=== PATIENT | male | born 1960 | race Caucasian/White ===

== ENCOUNTER 2021-04-04 14:08 | Emergency (ER) | payer BC, OTHER ==
[2021-04-04 14:37] VITALS: RESP 18; TEMP 97.7
--- NOTE | 2021-04-04 14:59 | ED ---
General Adult HPI - General Chief complaint: Extremity Problem,Nontraumatic Stated complaint: L Leg Pain Time Seen by Provider: 04/04/21 14:21 Source: patient Mode of arrival: wheelchair Limitations: no limitations - History of Present Illness Initial comments: Dictation was produced using [employer] dictation software. please excuse any grammatical, word or spelling errors. Chief Complaint: 61-year-old male presents with left lower extremity pain. History of Present Illness: 61 yo male presents to the emergency department left lower extremity pain. Patient states he had a PE in the past after right foot bunion surgery. Reports over the last week he has been developing symptoms of left lower extremity pain. He states that he has pain from his hip all her down to his foot.. Denies any chest pain shortness of breath. States that he does have some pain in his left calf and left medial thigh. No fevers, chills or night sweats. The ROS documented in this emergency department record has been reviewed and confirmed by me. Those systems with pertinent positive or negative responses have been documented in the HPI. All other systems are other negative and/or noncontributory. PHYSICAL EXAM: General Impression: Alert and oriented x3, not in acute distress HEENT: Normocephalic atraumatic, extra-ocular movements intact, pupils equal and reactive to light bilaterally, mucous membranes moist. Cardiovascular: Heart regular rate and rhythm Chest: Able to complete full sentences, no retractions, no tachypnea Abdomen: abdomen soft, non-tender, non-distended, no organomegaly Musculoskeletal: Pulses present and equal in all extremities, no peripheral edema Left lower showing: Pain with palpation of the left calf, left popliteal area. Motor: no focal deficits noted Neurological: CN II-XII grossly intact, no focal motor or sensory deficits noted Skin: Intact with no visualized rashes Psych: Normal affect and mood ED course: 61-year-old male with past medical history of PE presents to the emergency department of left lower extremity symptoms concerning for left lower extremity DVT. Signs upon arrival are within acceptable limits. Patient reports he does not take any anticoagulation medications. Lavatory evaluation obtained. Hemoglobin 9.0. CBC metabolic panel is unremarkable. Hip x-ray and knee x-ray shows no acute processes. Venous Doppler study shows no DVT.Treatment at bedside stable medical condition. Patient has history of anemia. He states that his anemia is being evaluated by his primary care doctor. He is had issues with anemia in the past that have been worked up however no obvious answer was found. Denies any black or dark stools. advise follow up with PCP. - Related Data Home Medications Medication Instructions Recorded Confirmed Aspirin EC [Ecotrin] 325 mg PO HS 04/04/21 04/04/21 Citalopram Hydrobromide [CeleXA] 40 mg PO HS 04/04/21 04/04/21 Ferrous Sulfate [Feosol] 325 mg PO TID 04/04/21 04/04/21 HYDROcodone/APAP 10-325MG [[place] 2 tab PO BID 04/04/21 04/04/21 10-325] LORazepam [Ativan] 1 mg PO BID PRN 04/04/21 04/04/21 Multivitamins, Thera [Multivitamin 1 tab PO HS 04/04/21 04/04/21 (formulary)] rOPINIRole HCL [Requip] 2 mg PO HS 04/04/21 04/04/21 Allergies Allergy/AdvReac Type Severity Reaction Status Date / Time No Known Allergies Allergy Verified 04/04/21 17:22 Review of Systems ROS Statement: Those systems with pertinent positive or pertinent negative responses have been documented in the HPI. ROS Other: All systems not noted in ROS Statement are negative. Past Medical History Past Medical History: No Reported History History of Any Multi-Drug Resistant Organisms: None Reported Past Surgical History: Orthopedic Surgery Additional Past Surgical History / Comment(s): Right rotator cuff repair 2009, Bunion removal R great toe 2012 Past Psychological History: No Psychological Hx Reported Smoking Status: Current every day smoker Past Alcohol Use History: Occasional Past Drug Use History: Marijuana General Exam Limitations: no limitations Course Vital Signs 04/04/21 04/04/21 14:22 16:00 Temperature 97.7 F Pulse Rate 68 62 Respiratory 18 18 Rate Blood Pressure 138/90 144/83 O2 Sat by Pulse 100 98 Oximetry Medical Decision Making - Lab Data Result diagrams: 04/04/21 14:51 04/04/21 14:51 Lab Results 04/04/21 04/04/21 04/04/21 Range/Units 14:51 14:51 14:51 WBC 5.3 (3.8-10.6) k/uL RBC 3.45 L (4.30-5.90) m/uL Hgb 9.0 L (13.0-17.5) gm/dL Hct 28.2 L (39.0-53.0) % MCV 81.9 (80.0-100.0) fL MCH 26.1 (25.0-35.0) pg MCHC 31.9 (31.0-37.0) g/dL RDW 25.5 H (11.5-15.5) % Plt Count 212 (150-450) k/uL MPV 7.4 Neutrophils % 66 % Lymphocytes % 19 % Monocytes % 5 % Eosinophils % 9 % Basophils % 1 % Neutrophils # 3.5 (1.3-7.7) k/uL Lymphocytes # 1.0 (1.0-4.8) k/uL Monocytes # 0.2 (0-1.0) k/uL Eosinophils # 0.5 (0-0.7) k/uL Basophils # 0.0 (0-0.2) k/uL Hypochromasia Marked Anisocytosis Marked Microcytosis Moderate PT 10.5 (9.0-12.0) sec INR 1.0 (<1.2) APTT 20.1 L (22.0-30.0) sec Sodium 139 (137-145) mmol/L Potassium 4.6 (3.5-5.1) mmol/L Chloride 108 H (98-107) mmol/L Carbon Dioxide 25 (22-30) mmol/L Anion Gap 6 mmol/L BUN 19 (9-20) mg/dL Creatinine 0.76 (0.66-1.25) mg/dL Est GFR (CKD-EPI)AfAm >90 (>60 ml/min/1.73 sqM) Est GFR (CKD-EPI)NonAf >90 (>60 ml/min/1.73 sqM) Glucose 89 (74-99) mg/dL Calcium 8.8 (8.4-10.2) mg/dL Disposition Clinical Impression: Leg pain Disposition: HOME SELF-CARE Condition: Good Instructions (If sedation given, give patient instructions): Leg Pain (ED) Is patient prescribed a controlled substance at d/c from ED?: No Referrals: Jemal Ordoñez MD [Primary Care Provider] - 1-2 days
[2021-04-04 15:26] LABS: Anisocytosis Marked; Basophils % (A) 1 %; Eosinophils # (A) 0.5 k/uL (0-0.7); Eosinophils % (A) 9 %; HCT 28.2 % (39.0-53.0); Hypochromasia Marked; Lymphocytes % (A) 19 %; MCH 26.1 pg (25.0-35.0); MCHC 31.9 g/dL (31.0-37.0); MCV 81.9 fL (80.0-100.0); Mean Platelet Volume 7.4; Microcytosis Moderate; Monocytes # (A) 0.2 k/uL (0-1.0); Monocytes % (A) 5 %; Neutrophils # (A) 3.5 k/uL (1.3-7.7); Neutrophils % (A) 66 %; Platelet Count 212 k/uL (150-450); RBC 3.45 m/uL (4.30-5.90); WBC 5.3 k/uL (3.8-10.6)
[2021-04-04 15:41] LABS: Partial Thromboplastin Time 20.1 sec (22.0-30.0); Prothrombin Time 10.5 sec (9.0-12.0)
[2021-04-04 15:46] LABS: African American GFR (CKD) >90 (>60 ml/min/1.73 sqM); Anion Gap 6 mmol/L; Blood Urea Nitrogen 19 mg/dL (9-20); Calcium 8.8 mg/dL (8.4-10.2); Carbon Dioxide 25 mmol/L (22-30); Chloride 108 mmol/L (98-107); Glucose 89 mg/dL (74-99); Non-African American GFR(CKD) >90 (>60 ml/min/1.73 sqM); Potassium 4.6 mmol/L (3.5-5.1); Sodium 139 mmol/L (137-145)
[2021-04-04 15:55] LABS: RDW 25.5 % (11.5-15.5)
--- NOTE | 2021-04-04 16:09 | US ---
EXAMINATION TYPE: US venous doppler duplex LE LT DATE OF EXAM: 04/04/2021 3:52 PM COMPARISON: NONE CLINICAL HISTORY: suspect dvt. pain SIDE PERFORMED: Left TECHNIQUE: The lower extremity deep venous system is examined utilizing real time linear array sonog ana with graded compression, doppler sonography and color-flow sonography. VESSELS IMAGED: Common Femoral Vein Deep Femoral Vein Greater Saphenous Vein * Femoral Vein Popliteal Vein Small Saphenous Vein * Proximal Calf Veins (* superficial vessels) There is normal flow, compressibility, vascular waveforms Left Leg: Negative for DVT IMPRESSION: No evident deep venous process at left knee or central to the left knee
[2021-04-04 16:42] VITALS: BP 144/83; PULSE 62
--- NOTE | 2021-04-04 16:46 | XR ---
EXAMINATION TYPE: XR knee 4V LT DATE OF EXAM: 04/04/2021 COMPARISON: NONE HISTORY: Left leg pain TECHNIQUE: 4 views FINDINGS: I see no fracture nor dislocation. Joint spaces are normal. There are no pathologic calcifi cations. IMPRESSION: Normal left knee exam. No fracture.
--- NOTE | 2021-04-04 16:48 | XR ---
EXAMINATION TYPE: XR Hip Complete LT DATE OF EXAM: 04/04/2021 COMPARISON: NONE HISTORY: Leg pain TECHNIQUE: 2 views FINDINGS: There is some spurring on the femoral head. Acetabulum appears intact. I see no fracture. S acroiliac joint is intact. There is no significant hip joint space narrowing. IMPRESSION: Osteoarthritis. No fracture seen.
== END 2021-04-04 17:58 | disposition home or self-care (01) ==
LOC: EC 14:08
DX: M79.605 Pain in left leg (principal); F17.200 Nicotine dependence, unspecified, uncomplicated; F12.90 Cannabis use, unspecified, uncomplicated; Z79.82 Long term (current) use of aspirin; Z86.711 Personal history of pulmonary embolism
CPT/HCPCS: 36415; 73502; 80048; 85025; 85610; 85730; 99284

== ENCOUNTER 2021-05-19 09:16 | Day surgery (SDC) | payer BC ==
[2021-05-15 12:59] VITALS: BMI 32.1
[~2021-05-19 09:16] MED LIST: LACTATED RINGERS 1,000 ML IV SCH; LIDOCAINE 1% (10MG/ML) FOR IV START INTRADERMA PRN; MIDAZOLAM 2 MG/2 ML VIAL IV PRN
[2021-05-19 09:41] VITALS: RESP 16; TEMP 97.2
[2021-05-19] MEDS ORDERED: PROPOFOL 10 MG/ML 20 ML VIAL IV ONE (09:50)
[2021-05-19] MEDS ORDERED: LIDOCAINE 1% INJ 10MG/ML (20 ML MDV) ONE (09:50)
--- NOTE | 2021-05-19 10:31 | P.PCN ---
Date of Procedure: 05/19/21 Description of Procedure: Brief history: Patient is a 61-year-old male presenting for outpatient eso phagogastroduodenoscopy and colonoscopy for evaluation of symptoms of anemia. Patient denies any gross signs or symptoms of GI bleeding. Last colonoscopy 2017 significant for pandiverticulosis and internal hemorrhoids. Patient has recently seen a blueprint engineer and reports that hemoglobin improved from 7-13. No family history of colon cancer. Procedure performed: Esophagogastroduodenoscopy with biopsy Colonoscopy Estimated blood loss: Minimal. Preoperative diagnosis: Anemia, iron deficiency anemia, last colonoscopy 2016 Anesthesia: MAC Procedure: After informed consent was obtained from the patient was brought into the endoscopy unit and IV sedation was administered by anesthesia under continuous monitoring. Initially upper endoscopy was done. The Olympus GF 190 video endoscope was inserted into the mouth and esophagus intubated without any difficulty and was gradually advanced into the stomach and duodenum and carefully examined. The bulb and second part of the duodenum appeared normal, with biopsies taken. The scope was then withdrawn into the stomach adequately insufflated with air and upon careful examination the antrum and body, cardia and fundus appeared normal, with some moderate punctate erythema with some superficial erosions in the antrum and body as well as in the hiatal hernia sac. The scope was then withdrawn into the esophagus. The GE junction was located at 35 cm to the incisors, with a 5 cm hiatal hernia noted. It appeared regular with no erythema erosions or ulcerations. Rest of the esophagus appeared normal. Patient tolerated the procedure well. At this time the patient continued to remain sedation. Initial digital rectal examination was normal. Olympus CF 190 video colonoscope was then inserted into the rectum and gradually advanced to the cecum without any difficulty. Careful examination was performed as the scope was gradually being withdrawn. The prep was excellent. The cecum, ascending colon, transverse colon, descending colon, sigmoid colon and rectum appeared normal. A few scattered diverticula noted throughout the colon. Retroflexion was performed in the rectum and no lesions were noted, low-grade internal hemorrhoids noted. Patient tolerated the procedure well. Impression: 1. Moderate gastritis. Large hiatal hernia. No ulceration, masses or evidence of bleeding noted. Biopsies of the duodenum, antrum and body. 2. Mild pandiverticulosis. Internal hemorrhoids. Recommendations: Findings of this examination were discussed with the patient as well as his family. Okay to resume diet. Okay to resume medications. Await pathology from biopsies. Patient will be given a 2 month course of omeprazole daily for treatment of gastritis. Follow up with hematology as scheduled. Repeat colonoscopy in 10 years for screening for malignant neoplasm of the colon.
[2021-05-19 10:52] VITALS: BP 144/91; PULSE 68
== END 2021-05-19 11:17 | disposition home or self-care (01) ==
LOC: ORWHC2ENDO 09:16
PROVIDERS: ATTEND Internal Medicine
DX: K31.9 Disease of stomach and duodenum, unspecified (principal); K44.9 Diaphragmatic hernia without obstruction or gangrene; K64.8 Other hemorrhoids; K57.30 Diverticulosis of large intestine without perforation or abscess without bleeding; D50.9 Iron deficiency anemia, unspecified; I10 Essential (primary) hypertension; F17.210 Nicotine dependence, cigarettes, uncomplicated; Z86.711 Personal history of pulmonary embolism; F32.9 Major depressive disorder, single episode, unspecified; Z98.890 Other specified postprocedural states; Z79.82 Long term (current) use of aspirin; Z79.891 Long term (current) use of opiate analgesic; Z79.899 Other long term (current) drug therapy
CPT/HCPCS: 88305; 45378; 43239; J2001; J2704

== ENCOUNTER → 2021-05-29 | Outpatient (CLI) | payer BC ==
--- NOTE | 2021-05-29 17:46 | MR ---
EXAMINATION TYPE: MR lumbar spine wo con DATE OF EXAM: 05/29/2021 COMPARISON: None HISTORY: Chronic LBP, BLE radiculopathy. TECHNIQUE: Standard departmental protocol. Multiplanar, multisequence images of the lumbar spine were acquired. FINDINGS: The intramedullary examination is negative. The extramedullary/intradural examination is negative. At L4-5 there is moderate marked bilateral lateral recess and central canal stenosis secondary to cir cumferential disc bulge and bilateral prominent hypertrophy of the ligamentum flavum, correlate for b ilateral L5 radiculopathy. L5-S1 there is circumferential disc bulge and bilateral ligamentum flavum hypertrophy, with the left S1 nerve root slightly more posterior than the right, but no definite nerve root impingement. At all remaining levels there is disc space narrowing and circumferential disc bulging with degenerat sofia facet changes, but no other candidates for possible nerve root impingement at this time. There are no focal skeletal lesions. No extraspinal soft tissue incidental findings. IMPRESSION: Moderate-marked spinal stenosis at L4-5, with prominent changes also noted at L5-S1.
== END | disposition home or self-care (01) ==
LOC: RADMRIMAIN 16:41
PROVIDERS: ATTEND Family Medicine
DX: M48.061 Spinal stenosis, lumbar region without neurogenic claudication (principal); M54.16 Radiculopathy, lumbar region
CPT/HCPCS: 72148

== ENCOUNTER 2022-09-15 12:23 | Observation (INO) | payer BC ==
[2022-09-15] MEDS ORDERED: SODIUM CHLORIDE 0.9% 500 ML 500 ML IV STA (14:41)
[2022-09-15] MEDS ORDERED: LORazepam 2 MG/ML INJ IV STA (15:15)
[2022-09-15 15:21] LABS: Basophils # (A) 0.1 k/uL (0-0.2); Basophils % (A) 1 %; Eosinophils # (A) 0.4 k/uL (0-0.7); Eosinophils % (A) 7 %; HCT 39.9 % (39.0-53.0); HGB 13.4 gm/dL (13.0-17.5); Lymphocytes # (A) 0.9 k/uL (1.0-4.8); Lymphocytes % (A) 15 %; MCH 32.6 pg (25.0-35.0); MCHC 33.5 g/dL (31.0-37.0); MCV 97.3 fL (80.0-100.0); Mean Platelet Volume 7.5; Monocytes # (A) 0.3 k/uL (0-1.0); Monocytes % (A) 5 %; Neutrophils # (A) 4.2 k/uL (1.3-7.7); Neutrophils % (A) 69 %; Platelet Count 198 k/uL (150-450); RDW 12.6 % (11.5-15.5)
--- NOTE | 2022-09-15 15:23 | XR ---
EXAMINATION TYPE: XR chest 2V DATE OF EXAM: 09/15/2022 COMPARISON: NONE TECHNIQUE: PA and lateral views submitted. HISTORY: Altered mental status. FINDINGS: The lungs are clear and there is no pneumothorax, pleural effusion, or focal pneumonia. Hypertrophi c and degenerative changes spine. Heart size normal. No overt failure. Chronic deformity of the left clavicle. IMPRESSION: 1. No acute process.
--- NOTE | 2022-09-15 15:31 | CT ---
EXAMINATION TYPE: CT brain wo con DATE OF EXAM: 09/15/2022 COMPARISON: None HISTORY: 62-year-old male neurologic deficit, acute, stroke suspected, uncontrollable worsening tremo rs. TECHNIQUE: Examination was done in axial plane without intravenous contrast. Coronal and sagittal r econstructions performed. CT DLP: 1192.4 mGycm Automated exposure control for dose reduction was used. FINDINGS: Large band of beam hardening artifact extending across the patient's bilateral cerebellar lobes. Otherwise, there is no evidence of acute intracranial hemorrhage, acute ischemic changes, mass, mass -effect, or extra-axial fluid collection. There is no effacement of cerebral sulci or basal subarach noid cisterns. There is no hydrocephalus. There is no midline shift. Coy-white matter distinction is preserved. Rightward nasal septal deviation. Moderate mucosal thickening ethmoid air cells. Mastoid air cells we ll pneumatized. Orbits and globes are intact. IMPRESSION: Some artifacts especially across the cerebellum as above. No definite acute intracranial abnormality seen. [id number] chronic ethmoid sinus disease.
[2022-09-15 15:33] LABS: ALT 22 U/L (4-49); AST 23 U/L (17-59); African American GFR (CKD) >90 (>60 ml/min/1.73 sqM); Albumin 3.9 g/dL (3.5-5.0); Alkaline Phosphatase 75 U/L (38-126); Anion Gap 5 mmol/L; Blood Urea Nitrogen 19 mg/dL (9-20); Calcium 9.2 mg/dL (8.4-10.2); Carbon Dioxide 23 mmol/L (22-30); Chloride 110 mmol/L (98-107); Glucose 90 mg/dL (74-99); Non-African American GFR(CKD) >90 (>60 ml/min/1.73 sqM); Potassium 4.5 mmol/L (3.5-5.1); Sodium 138 mmol/L (137-145); Total Bilirubin 0.3 mg/dL (0.2-1.3); Total Protein 6.1 g/dL (6.3-8.2)
[2022-09-15] MEDS ORDERED: ASPIRIN 325 MG TAB PO STA (15:48)
--- NOTE | 2022-09-15 15:48 | ED ---
Neuro HPI - General Chief Complaint: Neuro Symptoms/Deficit Stated Complaint: weakness Time Seen by Provider: 09/15/22 14:33 Source: patient, EMS, RN notes reviewed Mode of arrival: EMS Limitations: no limitations - History of Present Illness Is the patient presenting with stroke symptoms?: No Initial Comments: This a 62-year-old male presents emergency Department chief complaints of confusion, difficulty speaking, difficulty and bleeding. Patient states he did not feel well overnight states that he went to work early couldn't sleep. Patient states that when he was at work people asked right felt all right he states he did not feel well a state that he was stumbling he states he couldn't catch his balance. Patient was told that he was slurring some words which was visualized by coworkers. states that he cannot come to the words that he wanted to speak he states prior to the emergency Department. He states now remembers from he has no symptoms states resolved when EMS arrived. Patient denies ankle went to headache no prior stroke. Patient states that he was on multiple medications but had to switch primary care physicians because of his PCP leaving he states he has not had HIS medications he is unsure this is related. - Related Data Home Medications: Home Medications Medication Instructions Recorded Confirmed Aspirin EC [Ecotrin] 325 mg PO HS 04/04/21 05/19/21 Citalopram Hydrobromide [CeleXA] 40 mg PO HS 04/04/21 05/19/21 Ferrous Sulfate [Feosol] 325 mg PO TID 04/04/21 05/19/21 HYDROcodone/APAP 10-325MG [[place] 2 tab PO BID PRN 04/04/21 05/19/21 10-325] LORazepam [Ativan] 1 mg PO BID PRN 04/04/21 05/19/21 Multivitamins, Thera [Multivitamin 1 tab PO HS 04/04/21 05/19/21 (formulary)] rOPINIRole HCL [Requip] 2 mg PO HS 04/04/21 05/19/21 Allergies/Adverse Reactions: Allergies Allergy/AdvReac Type Severity Reaction Status Date / Time No Known Allergies Allergy Verified 05/19/21 09:35 Review of Systems ROS Statement: Those systems with pertinent positive or pertinent negative responses have been documented in the HPI. ROS Other: All systems not noted in ROS Statement are negative. General Exam Limitations: no limitations General appearance: alert, in no apparent distress Head exam: Present: atraumatic, normocephalic, normal inspection Eye exam: Present: normal appearance, PERRL, EOMI. Absent: scleral icterus, conjunctival injection, periorbital swelling ENT exam: Present: normal exam, normal oropharynx, mucous membranes moist Neck exam: Present: normal inspection, full ROM. Absent: tenderness, meningismus, lymphadenopathy Respiratory exam: Present: normal lung sounds bilaterally. Absent: respiratory distress, wheezes, rales, rhonchi, stridor Cardiovascular Exam: Present: regular rate, normal rhythm, normal heart sounds. Absent: systolic murmur, diastolic murmur, rubs, gallop, clicks Neurological exam: Present: alert, oriented X3, CN II-XII intact, other (Finger to nose intact bilaterally without over shooting,nih 0, GCS 15). Absent: motor sensory deficit, reflexes normal Skin exam: Present: warm, dry, intact, normal color. Absent: rash Stroke MDM - Lab Data Result diagrams: 09/15/22 14:51 09/15/22 14:51 Lab Results 09/15/22 09/15/22 09/15/22 Range/Units 14:51 14:51 14:51 WBC 6.0 (3.8-10.6) k/uL RBC 4.10 L (4.30-5.90) m/uL Hgb 13.4 (13.0-17.5) gm/dL Hct 39.9 (39.0-53.0) % MCV 97.3 (80.0-100.0) fL MCH 32.6 (25.0-35.0) pg MCHC 33.5 (31.0-37.0) g/dL RDW 12.6 (11.5-15.5) % Plt Count 198 (150-450) k/uL MPV 7.5 Neutrophils % 69 % Lymphocytes % 15 % Monocytes % 5 % Eosinophils % 7 % Basophils % 1 % Neutrophils # 4.2 (1.3-7.7) k/uL Lymphocytes # 0.9 L (1.0-4.8) k/uL Monocytes # 0.3 (0-1.0) k/uL Eosinophils # 0.4 (0-0.7) k/uL Basophils # 0.1 (0-0.2) k/uL PT 10.3 (9.0-12.0) sec INR 1.0 (<1.2) APTT 25.0 (22.0-30.0) sec Sodium 138 (137-145) mmol/L Potassium 4.5 (3.5-5.1) mmol/L Chloride 110 H (98-107) mmol/L Carbon Dioxide 23 (22-30) mmol/L Anion Gap 5 mmol/L BUN 19 (9-20) mg/dL Creatinine 0.68 (0.66-1.25) mg/dL Est GFR (CKD-EPI)AfAm >90 (>60 ml/min/1.73 sqM) Est GFR (CKD-EPI)NonAf >90 (>60 ml/min/1.73 sqM) Glucose 90 (74-99) mg/dL Calcium 9.2 (8.4-10.2) mg/dL Total Bilirubin 0.3 (0.2-1.3) mg/dL AST 23 (17-59) U/L ALT 22 (4-49) U/L Alkaline Phosphatase 75 (38-126) U/L Troponin I (0.000-0.034) ng/mL Total Protein 6.1 L (6.3-8.2) g/dL Albumin 3.9 (3.5-5.0) g/dL 09/15/22 Range/Units 14:51 WBC (3.8-10.6) k/uL RBC (4.30-5.90) m/uL Hgb (13.0-17.5) gm/dL Hct (39.0-53.0) % MCV (80.0-100.0) fL MCH (25.0-35.0) pg MCHC (31.0-37.0) g/dL RDW (11.5-15.5) % Plt Count (150-450) k/uL MPV Neutrophils % % Lymphocytes % % Monocytes % % Eosinophils % % Basophils % % Neutrophils # (1.3-7.7) k/uL Lymphocytes # (1.0-4.8) k/uL Monocytes # (0-1.0) k/uL Eosinophils # (0-0.7) k/uL Basophils # (0-0.2) k/uL PT (9.0-12.0) sec INR (<1.2) APTT (22.0-30.0) sec Sodium (137-145) mmol/L Potassium (3.5-5.1) mmol/L Chloride (98-107) mmol/L Carbon Dioxide (22-30) mmol/L Anion Gap mmol/L BUN (9-20) mg/dL Creatinine (0.66-1.25) mg/dL Est GFR (CKD-EPI)AfAm (>60 ml/min/1.73 sqM) Est GFR (CKD-EPI)NonAf (>60 ml/min/1.73 sqM) Glucose (74-99) mg/dL Calcium (8.4-10.2) mg/dL Total Bilirubin (0.2-1.3) mg/dL AST (17-59) U/L ALT (4-49) U/L Alkaline Phosphatase (38-126) U/L Troponin I <0.012 (0.000-0.034) ng/mL Total Protein (6.3-8.2) g/dL Albumin (3.5-5.0) g/dL - Medical Decision Making 62-year-old male presented for strokelike symptoms that were present prior arrival. Patient currently asymptomatic. Initial workup present reveal any acute findings. Patient symptoms concerning for TIA. Aspirin was given patient will be admitted for neurology, further evaluation close monitoring. Past Medical History Past Medical History: Osteoarthritis (OA), Pulmonary Embolus (PE) Additional Past Medical History / Comment(s): N/T both legs, PE after surgery 7- 9 yrs. ago, anemic recently, hx. colon polyp History of Any Multi-Drug Resistant Organisms: None Reported Past Surgical History: Orthopedic Surgery Additional Past Surgical History / Comment(s): Right rotator cuff repair 2009, Bunion removal R great toe 2012 Past Anesthesia/Blood Transfusion Reactions: No Reported Reaction Past Psychological History: No Psychological Hx Reported Smoking Status: Current every day smoker Course Vital Signs 09/15/22 09/15/22 09/15/22 13:23 13:54 15:14 Temperature 97.3 F L Pulse Rate 77 75 Respiratory 20 18 16 Rate Blood Pressure 152/84 166/104 O2 Sat by Pulse 98 96 Oximetry Disposition Clinical Impression: TIA (transient ischemic attack) Disposition: ADMITTED IP TO THIS HOSP Condition: Fair Referrals: Nonstaff,Physician [Primary Care Provider] - 1-2 days Time of Disposition: 15:48
[2022-09-15 15:54] LABS: Prothrombin Time 10.3 sec (9.0-12.0)
[2022-09-15] MEDS ORDERED: HYDROcodone/APAP 10-325MG 1 EACH TAB PO PRN (16:05)
[2022-09-15] MEDS: SODIUM CHLORIDE 0.9% 1,000 ML IV SCH (17:13)
[2022-09-15] MEDS ORDERED: CITALOPRAM HYDROBROMIDE 20 MG TAB PO SCH (17:30)
--- NOTE | 2022-09-15 17:54 | P.HPIM ---
History of Present Illness H&P Date: 09/15/22 Patient is a 62-year-old male with history of PE, neuropathy of the left lower extremity, long-standing history of smoking presents the ED for constellation of symptoms. Patient reports being at work this morning and at around 10 AM his coworkers noticed right-sided facial droop and that the patient was unsteady on his feet. His daughter reports that he has had difficulty finding words. These symptoms were concerning which prompted him to come to the ED. Patient denies any headache, lower extremity edema, nausea or vomiting, fever or chills, cough, chest pain, shortness of breath, palpitations, changes in urination or bowel habits. No changes in appetite or weight. He denies any dizziness, weakness of the extremities. Of note, he reports left lower extremity numbness is ongoing for many years. In the ED, he was noted to have an elevated BP of 166/104. Vital signs otherwise stable. CBC was benign. INR was 1.0. CMP shows Cl 110 and total protein of 6.1. Troponin was less than 0.012. Flu, COVID, RSV negative. CT head negative for acute finding. CXR negative. Patient is admitted for TIA rule out CVA and neurology consult. Pertinent positives and negatives as discussed in HPI, a complete review of systems was performed and all other systems are negative. General: non toxic, no distress, appears at stated age Derm: warm, dry Head: atraumatic, normocephalic, symmetric Eyes: EOMI, no lid lag, anicteric sclera Mouth: no lip lesion, mucus membranes moist Cardiovascular: S1S2 reg, no murmur, positive posterior tibial pulse bilateral Lungs: CTA bilateral, no rhonchi, no rales , no accessory muscle use Abdominal: soft, nontender to palpation, no guarding, no appreciable or ganomegaly Ext: no gross muscle atrophy, no edema, no contractures Neuro: CN II-XI grossly intact, no focal neuro deficits except decreased sensation to touch in the LLE Psych: Alert, oriented, appropriate affect #TIA CT brain as above. Obtain MRI brain. Obtain carotid doppler. Obtain Echocardiogram. A1c and Lipid panel. Telemetry monitoring PT/OT/ST consult. Neurology consult. #Elevated BP without diagnosis of hypertension Possible white coat hypertension. Continue to monitor. #Smoker Patient encouraged to quit. #Depression Citalopram. #Peripheral neuropathy Gabapentin. #Restless leg syndrome Requip. DVT prophylaxis: Heparin Discussed with: Patient, ED physician Anticipated discharge: 1-[address]: Home A total of 30 minutes was spent on the care of this complex patient more than 50% of the time was spent in counseling and care coordination. HEIDI is his . Patient would like to be FULL CODE. Past Medical History Past Medical History: Osteoarthritis (OA), Pulmonary Embolus (PE) Additional Past Medical History / Comment(s): N/T both legs, PE after surgery 7- 9 yrs. ago, anemic recently, hx. colon polyp History of Any Multi-Drug Resistant Organisms: None Reported Past Surgical History: Orthopedic Surgery Additional Past Surgical History / Comment(s): Right rotator cuff repair 2009, Bunion removal R great toe 2012 Past Anesthesia/Blood Transfusion Reactions: No Reported Reaction Past Psychological History: No Psychological Hx Reported Smoking Status: Current every day smoker Medications and Allergies Home Medications Medication Instructions Recorded Confirmed Type Aspirin EC [Ecotrin] 325 mg PO HS 04/04/21 09/15/22 History Citalopram Hydrobromide [CeleXA] 40 mg PO AC-SUPPER 04/04/21 09/15/22 History Ferrous Sulfate [Feosol] 325 mg PO TID 04/04/21 09/15/22 History HYDROcodone/APAP 10-325MG [[place] 1 tab PO QID PRN 04/04/21 09/15/22 History 10-325] rOPINIRole HCL [Requip] 2 mg PO HS 04/04/21 09/15/22 History Gabapentin 300 mg PO TID 09/15/22 09/15/22 History Nicotine 21Mg/24Hr Patch [Habitrol] 1 patch TOPICAL DAILY 09/15/22 09/15/22 History Allergies Allergy/AdvReac Type Severity Reaction Status Date / Time No Known Allergies Allergy Verified 09/15/22 16:03 Physical Exam Vitals: Vital Signs Temp Pulse Resp BP Pulse Ox 09/15/22 17:15 77 18 159/115 99 09/15/22 15:14 75 16 166/104 96 09/15/22 13:54 18 09/15/22 13:23 97.3 F L 77 20 152/84 98 Intake and Output 09/15/22 09/15/22 09/15/22 06:59 14:59 22:59 Other: Weight 102.965 kg Results CBC & Chem 7: 09/15/22 14:51 09/15/22 14:51 Labs: Abnormal Lab Results - Last 24 Hours (Table) 09/15/22 09/15/22 Range/Units 14:51 14:51 RBC 4.10 L (4.30-5.90) m/uL Lymphocytes # 0.9 L (1.0-4.8) k/uL Chloride 110 H (98-107) mmol/L Total Protein 6.1 L (6.3-8.2) g/dL
--- NOTE | 2022-09-15 21:01 | US ---
EXAMINATION TYPE: US carotid duplex BILAT DATE OF EXAM: 09/15/2022 COMPARISON: NONE CLINICAL HISTORY: TIA. TIA TECHNIQUE: Carotid duplex ultrasound examination. Indirect Doppler criteria was utilized. Pt has restless body syndrome and was shaking during exam FINDINGS: EXAM MEASUREMENTS: RIGHT: Peak Systolic Velocity (PSV) cm/sec ----- Right CCA: 87.1 ----- Right ICA: 48.8 ----- Right ECA: 96.6 ICA/CCA ratio: 0.6 RIGHT: End Diastole cm/sec ----- Right CCA: 16.0 ----- Right ICA: 19.1 ----- Right ECA: 12.0 LEFT: Peak Systolic Velocity (PSV) cm/sec ----- Left CCA: 72.5 ----- Left ICA: 62.0 ----- Left ECA: 190.3 ICA/CCA ratio: 0.9 LEFT: End Diastole cm/sec ----- Left CCA: 19.2 ----- Left ICA: 16.7 ----- Left ECA: 23.0 VERTEBRALS (direction of flow): Right Vertebral: Not vis Left Vertebral: Not vis 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 No evidence of any hemodynamic arterial stenosis in the carotid arteries. Images and measurements suggest less than 40% stenosis in both internal carotid arteries. We did not visualize the vertebral arteries. Criteria for Assigning % of Stenosis / Diameter reduction (Estimation based on the indirect measurements of the internal carotid artery velocities (ICA PSV). 1. Normal (no stenosis)=ICA PSV < 125 cm/s: ratio < 2.0: ICA EDV<40 cm/s. 2. Less than 50% stenosis=ICA PSV < 125 cm/s: ratio < 2.0: ICA EDV<40 cm/s. 3. 50 to 69% stenosis=ICA PSV of 125 to 230 cm/s: ration 2.0 ? 4.0: ICA EDV 40-100 cm/s. 4. Greater than 70% stenosis to near occlusion= ICA PSV > 230 cm/s: ratio > 4.0: ICA EDV > 100 cm/s. 5. Near occlusion= ICA PSV velocities may be low or undetectable: variable ratio and ICA EDV. 6. Total occlusion=unable to detect flow.
[2022-09-15] MEDS: GABAPENTIN 300 MG CAP PO SCH (21:08)
[2022-09-15] MEDS: FERROUS SULFATE 325 MG TAB PO SCH (21:08)
[2022-09-15] MEDS: ASPIRIN 325 MG TAB PO SCH ×2 (21:08→21:10)
[2022-09-15] MEDS: LORazepam 1 MG TAB PO PRN (22:25)
[2022-09-15] MEDS ORDERED: MELATONIN 5 MG TABLET PO SCH (22:45)
[2022-09-16] MEDS: HEPARIN SODIUM,PORCINE/PF 5,000 UNIT/0.5 ML SYRINGE SQ SCH ×3 (03:54→16:56)
[2022-09-16] MEDS: SODIUM CHLORIDE 0.9% 1,000 ML IV SCH ×2 (03:55→16:56)
[2022-09-16] MEDS: FERROUS SULFATE 325 MG TAB PO SCH ×2 (08:12→16:56)
[2022-09-16] MEDS: GABAPENTIN 300 MG CAP PO SCH ×2 (08:12→16:56)
[2022-09-16] MEDS ORDERED: CLOPIDOGREL 75 MG TAB PO SCH (09:00)
[2022-09-16] MEDS ORDERED: NICOTINE 21MG/24HR PATCH TRANSDERM SCH (09:00)
[2022-09-16] MEDS ORDERED: ASPIRIN 325 MG TAB PO SCH (09:00)
[2022-09-16 09:49] LABS: Chol/HDL Ratio 4.08 Ratio; LDL Cholesterol,Calculated 121.7 mg/dL (0.0-131.0)
--- NOTE | 2022-09-16 11:54 | P.CNNES ---
History of Present Illness Consult date: 09/16/22 Requesting physician: Crow Antonio Reason for Consult: TIA History of Present Illness: This is a 62-year-old gentleman with history of restless leg syndrome, pulmonary embolism who presented emergency department because of confusion and difficulty speaking. He is accompanied with his daughter. It seems when the patient was at work yesterday he did not feel right and was stumbling and felt off balance. Patient was told that his speech was slurred and one person stated possible left facial droop but his coworkers. Per daughter he was having some speech difficulty as stating the wrong word and difficulty getting words out. He denies any focal weakness, visual disturbance, headache. He has been having difficulty sleeping at night for a prolonged peroid of time. He has been having initially restless leg syndrome but for a while after that has been having entire body jerks without urinary or bowel incontinence, tongue bite or soreness of tongue. His body jerks can happen at night or while awake. No rolling of eyes. Denies history of stroke or seizure. Patient is on aspirin 325 daily at nighttime. He does smoke 1 pack per day. Denies any illicit drug use. Some other workup during his hospital visit consisted of: Patient is afebrile. White blood cell is within normal limits Chloride is 110 total protein is 6.1 otherwise rest of the chemistry panel is within normal limits Lipid panel is a triglyceride is 120, cholesterol is 193, LDLs 121 and HDL is [address] of the head is reported as some artifact especially across her cerebellum. No definite of acute intracranial abnormality seen. Mild to moderate chronic ethmoid sinus disease. I personally reviewed the CT of the head and there is no acute or subacute ischemia and there is no interpretable hemorrhage that was appreciated. Carotid duplex was reported as exam is limited. No evidence of any hemodynamic arterial stenosis in the carotid artery. Images and measurements suggest less than 40% stenosis in both internal carotid arteries. We did not visualize the vertebral arteries. In the ED the patient had no neurological deficit according the ED note therefore no IV TPA since the risk outweighed the benefit. Was felt the patient has TIA Past Medical History Past Medical History: Osteoarthritis (OA), Pulmonary Embolus (PE) Additional Past Medical History / Comment(s): N/T both legs, PE after surgery 7- 9 yrs. ago, anemic recently, hx. colon polyp History of Any Multi-Drug Resistant Organisms: None Reported Past Surgical History: Orthopedic Surgery Additional Past Surgical History / Comment(s): Right rotator cuff repair 2009, Bunion removal R great toe 2013 Past Anesthesia/Blood Transfusion Reactions: No Reported Reaction Past Psychological History: No Psychological Hx Reported Smoking Status: Current every day smoker Medications and Allergies Home Medications Medication Instructions Recorded Confirmed Type Aspirin EC [Ecotrin] 325 mg PO HS 04/04/21 09/15/22 History Citalopram Hydrobromide [CeleXA] 40 mg PO AC-SUPPER 04/04/21 09/15/22 History Ferrous Sulfate [Feosol] 325 mg PO TID 04/04/21 09/15/22 History HYDROcodone/APAP 10-325MG [[place] 1 tab PO QID PRN 04/04/21 09/15/22 History 10-325] rOPINIRole HCL [Requip] 2 mg PO HS 04/04/21 09/15/22 History Gabapentin 300 mg PO TID 09/15/22 09/15/22 History Nicotine 21Mg/24Hr Patch [Habitrol] 1 patch TOPICAL DAILY 09/15/22 09/15/22 History Allergies Allergy/AdvReac Type Severity Reaction Status Date / Time No Known Allergies Allergy Verified 09/15/22 16:03 Physical Examination - Vital Signs Vital Signs: Vital Signs Temp Pulse Resp BP Pulse Ox 09/16/22 06:58 83 16 137/74 94 L 09/16/22 04:52 82 16 131/82 94 L 09/16/22 03:19 87 09/15/22 23:06 97.6 F 09/15/22 21:18 97.5 F L 93 18 154/100 97 09/15/22 18:47 75 18 164/93 97 09/15/22 17:15 77 18 159/115 99 09/15/22 15:14 75 16 166/104 96 09/15/22 13:54 18 09/15/22 13:23 97.3 F L 77 20 152/84 98 Intake and Output 09/15/22 09/16/22 09/16/22 22:59 06:59 14:59 Other: # Voids 2 GENERAL: The patient is lying in bed and is not in acute distress. CHEST: The heart rate is regular rate rhythm. No murmurs to auscultation. LUNG: Clear to auscultation bilaterally no wheezing noted throughout. Not labored breathing. ABDOMEN/GI: Bowel sounds present in all 4 quadrants. No tenderness to palpation throughout. NEUROLOGICAL: Higher mental function: The patient is awake, alert, oriented to self, place and time. Patient is following commands. No aphasia and no neglect. Cranial nerves: The pupils are round, equal and reactive to light and accommodation. Visual saleh are full to confrontation throughout. Extraocular movement is intact no nystagmus is noted. Facial sensation is normal to touch throughout. The facial strength is normal throughout. Hearing is normal bilaterally to hand rub. Tongue is midline and moved [id number] without any difficulty. No dysarthria is noted. Shoulder shrug is normal bilaterally. Motor: The strength is 5 over 5 throughout. Normal tone and bulk. Cerebellum: Normal finger to nose bilaterally. Sensation: Sensation is normal to touch throughout. Reflexes (right/left): 2+ throughout. Plantars are downgoing bilaterally. Results - Laboratory Findings CBC and BMP: 09/15/22 14:51 09/15/22 14:51 Abnormal Lab Findings: Abnormal Labs 09/15/22 12 14:51 14:51 RBC 4.10 L Lymphocytes # 0.9 L Chloride 110 H Total Protein 6.1 L Assessment and Plan Assessment: Acute transient dysarthria with feeling off balance, questionable left facial droop and speech difficulty (expressive aphasia): Probable TIA Restless leg syndrome Myoclonic jerks. Rule out epileptic in nature (seems unlikely. Denies any urinary/bowel incontinence, tongue bite or soreness, eye rolling back). History of Pulmonary Embolism Nicotine use Plan: I I resumed his home dose of aspirin 325 daily and in addition, Plavix 75 mg daily was added by the primary team. The patient to be on dual antiplatelet and after 21 days stop aspirin but continue Plavix from a neurologic perspective. I started the patient on Lipitor 40 mg daily at bedtime for secondary stroke prophylaxis MRI the brain, 2-D echo was ordered by the primary team is pending I ordered routine EEG because of myoclonic jerks to rule out seizure. I will not start antiepileptic drugs unless there is epileptiform discharges or seizure on the EEG. I ordered TSH level area continue neuro checks On cardiac monitoring PT OT and PT SITTER are consulted Patient was counseled on tobacco cessation for 4 minutes. We'll defer the rest of the medical management to primary team For DVT prophylaxis is on subcu heparin 5000 units every 8 hours The patient has coming-up appointment with neurologist as outpatient (Dr. Huang). Thank you for the consultation. Time with Patient: Greater than 30
[2022-09-16 14:09] VITALS: BP 134/90; PULSE 65; RESP 16; TEMP 98.3
[2022-09-16] MEDS: LORazepam 1 MG TAB PO PRN (16:08)
--- NOTE | 2022-09-16 17:00 | MR ---
EXAMINATION TYPE: MR brain wo con DATE OF EXAM: 09/16/2022 COMPARISON: None HISTORY: TIA Multiplanar multiecho imaging of the drain performed without contrast. Ventricles are of normal size. There is no mass effect or midline shift. No sign of intracranial hemo rrhage. The diffusion images show no evidence of an acute infarct. Corpus callosum is intact. Sella turcica appears normal. No evidence of orbital mass. The brainstem is intact. On the T2 and FLAIR images there are a few scattered small peripheral white matter high signal foci measuring up to 4 mm. Total number is proximally 10. There is a small collect ion of these foci in the left posterior frontal lobe. IMPRESSION: There are scattered peripheral small white matter high signal foci that could relate to microvascular ischemia. Otherwise negative exam. No evidence of cortical infarct.
--- NOTE | 2022-09-16 18:41 | P.DS ---
Providers Date of admission: 09/15/22 16:06 Expected date of discharge: 09/16/22 Attending physician: Stewart Fuentes MD Consults: 09/15/22 16:04 Consult Physician Urgent Consulting Provider: Shaun Walsh Consult Reason/Comments: TIA Do you want consulting provider notified?: Yes Primary care physician: Physician Nonstaff Hospital Course: Patient is a 62-year-old male with history of PE, neuropathy of the left lower extremity, long-standing history of smoking presents the ED for constellation of symptoms. Patient reports being at work this morning and at around 10 AM his coworkers noticed right-sided facial droop and that the patient was unsteady on his feet. His daughter reports that he has had difficulty finding words. These symptoms were concerning which prompted him to come to the ED. Patient denies any headache, lower extremity edema, nausea or vomiting, fever or chills, cough, chest pain, shortness of breath, palpitations, changes in urination or bowel h abits. No changes in appetite or weight. He denies any dizziness, weakness of the extremities. Of note, he reports left lower extremity numbness is ongoing for many years. In the ED, he was noted to have an elevated BP of 166/104. Vital signs otherwise stable. CBC was benign. INR was 1.0. CMP shows Cl 110 and total protein of 6.1. Troponin was less than 0.012. Flu, COVID, RSV negative. CT head negative for acute finding. CXR negative. Patient is admitted for TIA rule out CVA and neurology consult. His symptoms resolved during his hospitalization. Neurology was consulted and recommended stroke workup and EEG. Carotid Doppler showed 40% stenosis of both internal carotid arteries. MRI brain showed scattered peripheral small white matter high signal foci related to microvascular ischemia. EEG was done and pending at the time of this note. Neurology recommended aspirin and Plavix for 21 days followed by discontinuing aspirin. Neurology also recommended Lipitor. Patient was seen and examined. No acute events overnight. Patient reports complete resolution of his symptoms. He is requesting to go home. General: non toxic, no distress, appears at stated age Derm: warm, dry Head: atraumatic, normocephalic, symmetric Eyes: EOMI, no lid lag, anicteric sclera Mouth: no lip lesion, mucus membranes moist Cardiovascular: S1S2 reg, no murmur Lungs: CTA bilateral, no rhonchi, no rales , no accessory muscle use Ext: no gross muscle atrophy, no edema, no contractures Neuro: no focal neuro deficits except decreased sensation to touch in the LLE Psych: Alert, oriented, appropriate affect Discharge diagnoses: #TIA #Elevated BP without diagnosis of hypertension #Smoker #Depression #Peripheral neuropathy #Restless leg syndrome Patient be discharged home with the following instructions: Diet: Cardiac Take both aspirin and plavix for the next 21 days. After that, stop aspirin and continue Plavix. Continue Lipitor. Come back to the ED or call 911 for slurred speech, confusion, facial droop, numbness/weakness/tinging of the extremities. Follow up with Dr. Huang within 1 week of discharge. Patient Condition at Discharge: Fair Plan - Discharge Summary Discharge Rx Participant: Yes New Discharge Prescriptions: New Atorvastatin [Lipitor] 40 mg PO HS #30 tab Clopidogrel [Plavix] 75 mg PO DAILY #30 tab Continue HYDROcodone/APAP 10-325MG [[place] 10-325] 1 tab PO QID PRN PRN Reason: Pain Ferrous Sulfate [Iron (65 MG Elemental)] 325 mg PO TID Gabapentin 300 mg PO TID Nicotine 21Mg/24Hr Patch [Habitrol] 1 patch TOPICAL DAILY rOPINIRole HCL [Requip] 2 mg PO HS Citalopram Hydrobromide [CeleXA] 40 mg PO AC-SUPPER Aspirin EC [Ecotrin] 325 mg PO HS Discharge Medication List Aspirin EC [Ecotrin] 325 mg PO HS 04/04/21 [History] Citalopram Hydrobromide [CeleXA] 40 mg PO AC-SUPPER 04/04/21 [History] Ferrous Sulfate [Iron (65 MG Elemental)] 325 mg PO TID 04/04/21 [History] HYDROcodone/APAP 10-325MG [[place] 10-325] 1 tab PO QID PRN 04/04/21 [History] rOPINIRole HCL [Requip] 2 mg PO HS 04/04/21 [History] Gabapentin 300 mg PO TID 09/15/22 [History] Nicotine 21Mg/24Hr Patch [Habitrol] 1 patch TOPICAL DAILY 09/15/22 [History] Atorvastatin [Lipitor] 40 mg PO HS #30 tab 09/16/22 [Rx] Clopidogrel [Plavix] 75 mg PO DAILY #30 tab 09/16/22 [Rx] Follow up Appointment(s)/Referral(s): Lamont Huang MD [Medical Doctor] - 1 Week Nonstaff,Physician [Primary Care Provider] - 1-2 days Patient Instructions/Handouts: Transient Ischemic Attack (DC) Activity/Diet/Wound Care/Special Instructions: Diet: Cardiac Take both aspirin and plavix for the next 21 days. After that, stop aspirin and continue Plavix. Continue Lipitor. Come back to the ED or call 911 for slurred speech, confusion, facial droop, numbness/weakness/tinging of the extremities. Follow up with Dr. Huang within 1 week of discharge. Discharge Disposition: HOME SELF-CARE
[2022-09-16] MEDS ORDERED: ATORVASTATIN 40 MG TAB PO SCH (21:00)
--- NOTE | 2022-09-16 21:03 | EEG ---
ELECTROENCEPHALOGRAM REPORT CLINICAL HISTORY: This is a 62-year-old gentleman with episode of confusion and reported repeated myoclonic jerks. The video EEG is obtained to evaluate for seizure epileptiform activity. RELEVANT MEDICATION: Gabapentin and ropinirole. EEG TYPE: A routine 21-channel EEG is performed with video using the 10/20 electrode placement system. DESCRIPTION: Wakefulness and drowsiness are obtained. During awake state, the posterior-dominant rhythm consists of [id number] voltage of 8.5 to 9 hertz activity that is well modulated, well sustained. There is no physiological stage 2 sleep architecture seen. There is no focal slowing. Interictal and ictal is none. During the study, the patient had episodes of body jerks and that were noted by the senior games technician. Examples are 12:27:22 and 12:36:46, and they are without EEG correlate for seizure or any discharges. ACTIVATION PROCEDURE: Photic stimulation did not evoke a posterior driving response. There is no abnormality during the photic stimulation. Hyperventilation is not performed. CLINICAL INTERPRETATION: This is a normal routine EEG. There is no focal slowing, epileptiform discharges, or seizure on the EEG. The patient's body jerks were captured during the study and are without any EEG correlate for seizures or discharges. Clinical correlation is recommended. MMODL / IJN: [id number] /
[2022-09-17] MEDS ORDERED: ASPIRIN 325 MG TAB PO SCH (09:00)
--- NOTE | 2022-09-17 11:05 | CA ---
Transthoracic Echo Report Name: Marino Bone Age: 62 Gender: M : 1960 Exam Date: 09/16/2022 13:43 Exam Location: [facility] Ht (in): 70 Wt (lb): 227 Ordering Physician: Sarwat Olmstead MD Attending/Referring Phys: Meteorological Observer Annie Ceja RDCS Procedure CPT: Indications: tia Cardiac Hx: Technical Quality: Fair Contrast 1: Total Dose (mL): Contrast 2: Total Dose (mL): MEASUREMENTS (Male / Female) Normal Values 2D ECHO LV Diastolic Diameter PLAX 4.4 cm 4.2 - 5.9 / 3.9 - 5.3 cm LV Systolic Diameter PLAX 2.6 cm IVS Diastolic Thickness 1.6 cm 0.6 - 1.0 / 0.6 - 0.9 cm LVPW Diastolic Thickness 1.3 cm 0.6 - 1.0 / 0.6 - 0.9 cm LV Relative Wall Thickness 0.7 LA Volume 47.6 cm??? 18 - 58 / 22 - 52 cm??? M-MODE Aortic Root Diameter MM 3.7 cm LA Systolic Diameter MM 4.4 cm LA Ao Ratio MM 1.2 AV Cusp Separation MM 2.4 cm DOPPLER AV Peak Velocity 131.8 cm/s AV Peak Gradient 6.9 mmHg AV Mean Velocity 93.9 cm/s AV Mean Gradient 4.0 mmHg AV Velocity Time Integral 26.4 cm LVOT Peak Velocity 88.4 cm/s LVOT Peak Gradient 3.1 mmHg LVOT Velocity Time Integral 17.8 cm MV Area PHT 2.6 cm??? Mitral E Point Velocity 44.9 cm/s Mitral A Point Velocity 65.8 cm/s Mitral E to A Ratio 0.7 MV Deceleration Time 289.6 ms MV E' Velocity 5.9 cm/s Mitral E to MV E' Ratio 7.6 TR Peak Velocity 217.8 cm/s TR Peak Gradient 19.0 mmHg Right Ventricular Systolic Press 24.0 mmHg FINDINGS Left Ventricle Moderately increased left ventricular wall thickness. Normal left ventricular systolic function with no obvious regional wall motion abnormalities. Left ventricular ejection fraction is estimated at 55-60 %. Normal left ventricular diastolic filling pattern. Right Ventricle Normal right ventricular size and function. Right ventricular systolic pressure within normal limits. Right Atrium Normal right atrial size. Left Atrium Normal left atrial size. Mitral Valve Structurally normal mitral valve. Trace mitral regurgitation. Aortic Valve No aortic valve stenosis or regurgitation. Tricuspid Valve Structurally normal tricuspid valve. Mild tricuspid regurgitation. Pulmonic Valve Trace pulmonic regurgitation. Pericardium No pericardial effusion. Aorta Normal size aortic root and proximal ascending aorta. CONCLUSIONS LVH with preserved systolic function Previewed by: Dr. Tam Mullins MD (Electronically Signed) Final Date: 17 September 2022 11:04
== END 2022-09-16 18:45 | disposition home or self-care (01) ==
LOC: EC 12:23 → 6NMEDSUR 16:06
PROVIDERS: ADMIT Student in an Organized Health Care Education/Training Program; ATTEND Student in an Organized Health Care Education/Training Program
DX: G45.9 Transient cerebral ischemic attack, unspecified (principal); R03.0 Elevated blood-pressure reading, without diagnosis of hypertension; F32.A Depression, unspecified; G25.81 Restless legs syndrome; G25.3 Myoclonus; G62.9 Polyneuropathy, unspecified; F17.200 Nicotine dependence, unspecified, uncomplicated; Z86.711 Personal history of pulmonary embolism; Z79.82 Long term (current) use of aspirin; Z79.899 Other long term (current) drug therapy; Z20.822 Contact with and (suspected) exposure to COVID-19
CPT/HCPCS: 96372 ×2; 96361; 96374; 99285; 36415; 95816; 93306; 92523; 80061; 80053; 84443; 84484; 85025; 85610; 85730; 83036; 87636; 71046; 93880; 70450; 70551; G0378 ×2; S4990; J2060; J1644

== ENCOUNTER → 2023-03-20 | Outpatient (CLI) | payer BC ==
--- NOTE | 2023-03-20 18:09 | MR ---
EXAMINATION TYPE: MR lumbar spine wo con DATE OF EXAM: 03/20/2023 COMPARISON: 05/29/2021 HISTORY: 63-year-old male M5 4.16 Low back pain into rt side/rt lower extremity TECHNIQUE: Multiplanar, multisequence images of the lumbar spine were acquired without IV contrast. FINDINGS: Vertebral body heights are preserved. Hypertrophic facet arthropathy especially mid to lower lumbar spine. Redemonstrated degenerative grad e 1 anterolisthesis L4-L5. Remaining alignment is maintained. Conus medullaris is normal. Some heterogeneous marrow signal but without suspicious bone marrow replacement. Moderate multilevel degenerative disc disease. Multilevel fatty Modic type II endplate changes present along with scattered small endplate Schmorl's nodes. There is some edematous Modic type I endplate changes posteriorly at L5-S1 where there is associated moderate degenerative disc disease, small posterior annular fissure, and small amount superior migrat ion of disc material. There is underlying congenital spinal canal stenosis mid to lower lumbar spine with AP canal dimensio n of 1.1 cm. This narrowing is accentuated by ligamentum flavum thickening, bulges, and prominent dorsal epidural fat which has progressed from 05/29/2021. These overall changes now resulting severe focal thecal sac compression at L4-L5 with moderate right and mild left neural foraminal stenosis. There is also severe focal thecal sac compression now at L3-L4 with effacement of the CSF signal. Mod erate bilateral neuroforaminal stenosis. At L2-L3, moderate focal spinal canal stenosis is similar. Minimal intervening CSF signal is present here. Mild bilateral neural foraminal stenosis. Also, similar mild overall narrowing of the spinal canal at L1-L2. At L5-S1, there is no spinal canal stenosis but there is a left lateral disc osteophyte complex may a but the extraforaminal left L5 nerve root. Moderate overall or foraminal narrowing at this level. Aga in, changes are progressed from 2020. No prevertebral or paravertebral soft tissue abnormality. IMPRESSION: 1. Moderate multilevel degenerative disc disease. Hypertrophic facet arthropathy and ligamentum flavu m thickening especially mid to lower lumbar spine. There is also prominent dorsal epidural fat. All o f these changes, progressed from 2020, are superimposed on a congenital spinal canal stenosis of the mid and lower lumbar spine. 2. Degenerative grade 1 anterolisthesis at L4-L5 with annular fissure. 3. Changes result in focal severe spinal canal stenoses at L4-L5 and L5-S1, both increased from prior . Similar moderate spinal canal stenosis at L2-L3 and mild at L1-L2. 4. Variable moderate neuroforaminal stenoses as outlined above. At L5-S1, there is a left lateral dis c osteophyte complex that may abut the extraforaminal left L5 nerve root.
== END | disposition home or self-care (01) ==
LOC: RADMRIMAIN 13:47
PROVIDERS: ATTEND Orthopaedic Surgery Orthopaedic Surgery of the Spine
DX: M51.16 Intervertebral disc disorders with radiculopathy, lumbar region (principal); M47.26 Other spondylosis with radiculopathy, lumbar region; M48.061 Spinal stenosis, lumbar region without neurogenic claudication; M43.16 Spondylolisthesis, lumbar region; M25.78 Osteophyte, vertebrae
CPT/HCPCS: 72148